=== PATIENT | male | born 1960 | race Caucasian/White ===

== ENCOUNTER → 2018-09-21 | Outpatient (CLI) | payer BC ==
[~2018-09-21] MED LIST: CELE100; CEPH500 PO; HYDACE5 PO
== END | disposition home or self-care (01) ==
LOC: LAB SHORT 19:21 → LAB EV 19:21
DX: N23 Unspecified renal colic (principal)
CPT/HCPCS: 87086

== ENCOUNTER → 2025-01-03 | Outpatient (CLI) | payer SELFPAY ==
[2025-01-03 20:33] LABS: LDL/HDL RATIO 1.4; Very Low Density Lipoprot Chol 18 mg/dL (6-32)
[2025-01-03 20:34] LABS: CHOL/HDL RATIO 2.8; Cholesterol 128 mg/dL (50-200); HDL Cholesterol 45 mg/dL (>39); Low Density Lipoprotein Chol 65 mg/dL (0-110); Triglycerides 92 mg/dL (30-160)
== END ==
LOC: LAB 14:28 → LAB SHORT 14:28
PROVIDERS: Family Medicine
DX: I73.89 Other specified peripheral vascular diseases (principal)
CPT/HCPCS: 80061